=== PATIENT | female | born 1955 | race Caucasian/White ===

== ENCOUNTER 2016-06-11 10:30 | Emergency (ER) | payer OTHER ==
[~2016-06-11] VITALS: Wt 77.3 kg
[~2016-06-11 10:30] MED LIST: BENAZEPRIL; OMEPRAZOLE
[2016-06-11 10:36] VITALS: Wt 77.3 kg
[2016-06-11] MEDS ORDERED: ACETAMINOPHEN 325 MG TAB PO ONE (12:00)
--- NOTE | 2016-06-11 12:41 | RADRPT ---
PROCEDURE: CT brain without contrast CLINICAL INDICATION: Fall, posterior head injury, pain posterior left side TECHNIQUE: CT of the brain without contrast was performed on a multidetector CT scanner, with multi planar reformats. One or more of the following dose reduction techniques were used: Automated expos ure control, adjustment in mA and / or kV according to patient size, use of iterative reconstructive technique. CTDIvol = 44 mGy; DLP = 720 mGy-cm. COMPARISON: None available FINDINGS: No acute intracranial hemorrhage is identified. No extra-axial fluid collection is seen. There is no mass effect. No midline shift is identified. Ventricles and sulci are within normal limits for size and configuration. The density of the brain is within normal limits. Ball-white differentiation is preserved. Osseous structures are unremarkable. Mastoid air cells and imaged paranasal sinuses grossly clear. IMPRESSION: Unremarkable noncontrast CT of the brain. RPTAT: VV .Joe Hernandes MD, Date Time Electronically viewed and signed by .Joe Hernandes MD, on 06/11/2016 12:41 .O/
--- NOTE | 2016-06-11 12:49 | RADRPT ---
PROCEDURE: CT cervical spine without contrast. CLINICAL INDICATION: Fall, neck pain TECHNIQUE: CT of the cervical spine without contrast was performed on a multidetector CT scanner, w ith multiplanar reformats. One or more of the following dose reduction techniques were used: Automa rajiv exposure control, adjustment in mA and / or kV according to patient size, use of iterative recon structive technique. CTDIvol = 22 mGy and DLP = 390 mGy-cm. COMPARISON: None available. FINDINGS: No fracture or dislocation is identified. There is straightening of the lordosis of the cervical sp ine. Alignment is intact. The vertebral bodies are maintained in height. Intervertebral disk [place] are maintained in height. There are anterior atlantoaxial joint degenerative changes. Anterior spondylosis is seen at C4-5, C5-6. No significant disk bulge or herniation is identified. There i s multilevel facet arthropathy, most pronounced at C3-4 on the left. No central canal stenosis is i dentified. There is mild-moderate left foraminal narrowing at C3-4 on the left. IMPRESSION: 1. Straightening of the cervical lordosis, without fracture/dislocation identified. 2. Cervical spondylosis without central canal stenosis identified. Mild-moderate left foraminal na rrowing at C3-4. RPTAT: VV .Joe Hernandes MD, Date Time Electronically viewed and signed by .Joe Hernandes MD, MD on 06/11/2016 12:49 .O/
[2016-06-11] MEDS ORDERED: ACET500C5 PO (13:34)
--- NOTE | 2016-06-11 14:27 | ERD ---
ER Documentation Chief Complaint Date/Time DATE: 06/11/16 TIME: 14:20 Chief Complaint GLF 30 min [employer] complaints of neck and shoulder pain no loc or neuro def HPI 7-year-old female with a past [place] history of hypertension presents to the ED complaining of a 3 foot fall to the back of her head and neck that occurred earlier today in the morning as she was standing on a chair and try to put the curtains up at home. Denies any loss of consciousness. States that she occasionally takes aspirin. States that she feels shaken up. Denies taking her hypertension medication earlier today. Reports that she takes benazepril and naproxen. Reports that she has posterior head pain and neck pain. Denies any lacerations, nausea, vomiting, weakness, numbness or tingling, abdominal pain, chest pain, shortness of breath, other extremity pain. ROS All systems reviewed and are negative except as per history of present illness. Medications Home Meds Active Scripts Acetaminophen* (Tylophen*) 500 Mg Capsule, 1 CAP PO Q6H Y for PAIN AND OR ELEVATED TEMP, #20 CAP Prov:CARLIE CHILDERS PA-C 06/11/16 Reported Medications [Omeprazole] No Conflict Check 01/30/16 [Benazepril] No Conflict Check 01/30/16 Allergies Allergies: Coded Allergies: No Known Drug Allergy (Verified Allergy, Mild, 07/17/10) PMhx/Soc History of Surgery: Yes () Anesthesia Reaction: No Hx Neurological Disorder: No Hx Respiratory Disorders: No Hx Cardiac Disorders: Yes (HTN) Hx Psychiatric Problems: No Hx Miscellaneous Medical Probl: No Hx Alcohol Use: No Hx Substance Use: No Hx Tobacco Use: No Physical Exam Vitals Vital Signs Date Time Temp Pulse Resp B/P Pulse Ox O2 Delivery O2 Flow Rate FiO2 06/11/16 10:36 98.5 68 20 177/80 97 Physical Exam Const: Ept-ozp-[id number], well-nourished. In no acute distress. Head: Atraumatic, normocephalic. No hematoma. No schmitz sign. Tenderness palpation of the posterior head. Eyes: Normal Conjunctiva without injection. No purulent discharge. PERRLA. EOMI ENT: Normal external ear. Ear canal without erythema. Tympanic membrane pearly ball without effusion or bulging. Nasal canal clear with normal turbinates. Moist oropharynx without tonsillar exudates. Non-erythematous pharynx. Uvula midline. No drooling. No trismus. Neck: Slight cervical midline tenderness. Full range of motion, however painful no meningismus. No cervical lymphadenopathy. No JVD. Resp: Clear to auscultation bilaterally. No wheezing, rhonchi, rales, or crackles. No accessory muscle use. No retractions. Cardio: Regular rate and rhythm. No murmurs, rubs or gallops. Abd: Soft, non tender, non distended. Normal bowel sounds. No palpable masses. No rebound tenderness. No guarding. Negative McBurney's Point. Negative Centeno's Sign. Skin: Normal skin turgor. No petechiae or rashes Back: No midline tenderness. No CVA tenderness. Ext: No cyanosis, or edema. Distal pulses intact bilaterally. Neur: Awake and alert. Normal gait. Normal coordination. Cranial Nerves II- VII intact. Normal finger to nose. Muscle strength 5/5. Sensation intact. Psych: Normal Mood and Affect Results 24 hrs Current Medications Medications (Trade) Dose Ordered Sig/Terrell Route PRN Reason Start Time Stop Time Status Last Admin Dose Admin Acetaminophen (Tylenol Tab) 650 mg ONCE ONCE PO 06/11/16 12:00 06/11/16 12:01 DC 06/11/16 12:41 Procedures/MDM This is a 61-year-old female with a past medical history of hypertension presents to the ED complaining of a posterior head and neck injury. Patient is afebrile and nontoxic-appearing. Patient's blood pressure was noted to be 177/ 80. Patient's blood pressure was elevated (>120/80) but appears stable without evidence of hypertension emergency or urgency. The patient was counseled about the risks of hypertension and urged to pursue outpatient monitoring and therapy within a week with their primary care physician. Low suspicion for end organ damage. Since patient reported to be taking aspirin, and has posterior head and neck pain, a CT of the brain without contrast and cervical neck x-ray was ordered to further evaluate patient. PROCEDURE: CT brain without contrast CLINICAL INDICATION: Fall, posterior head injury, pain posterior left side TECHNIQUE: CT of the brain without contrast was performed on a multidetector CT scanner, with multiplanar reformats. One or more of the following dose reduction techniques were used: Automated exposure control, adjustment in mA and / or kV according to patient size, use of iterative reconstructive technique. CTDIvol = 44 mGy; DLP = 720 mGy-cm. COMPARISON: None available FINDINGS: No acute intracranial hemorrhage is identified. No extra-axial fluid collection is seen. There is no mass effect. No midline shift is identified. Ventricles and sulci are within normal limits for size and configuration. The density of the brain is within normal limits. Ball-white differentiation is preserved. Osseous structures are unremarkable. Mastoid air cells and imaged paranasal sinuses grossly clear. IMPRESSION: Unremarkable noncontrast CT of the brain. PROCEDURE: CT cervical spine without contrast. CLINICAL INDICATION: Fall, neck pain TECHNIQUE: CT of the cervical spine without contrast was performed on a multidetector CT scanner, with multiplanar reformats. One or more of the following dose reduction techniques were used: Automated exposure control, adjustment in mA and / or kV according to patient size, use of iterative reconstructive technique. CTDIvol = 22 mGy and DLP = 390 mGy-cm. COMPARISON: None available. FINDINGS: No fracture or dislocation is identified. There is straightening of the lordosis of the cervical spine. Alignment is intact. The vertebral bodies are maintained in height. Intervertebral disk spaces are maintained in height. There are anterior atlantoaxial joint degenerative changes. Anterior spondylosis is seen at C4-5, C5-6. No significant disk bulge or herniation is identified. There is multilevel facet arthropathy, most pronounced at C3-4 on the left. No central canal stenosis is identified. There is mild-moderate left foraminal narrowing at C3-4 on the left. IMPRESSION: 1. Straightening of the cervical lordosis, without fracture/dislocation identified. 2. Cervical spondylosis without central canal stenosis identified. Mild- moderate left foraminal narrowing at C3-4. No CT evidence of acute emergent conditions at this time. Low suspicion for intracranial bleed, subarachnoid hemorrhage, subdural hematoma, epidural hematoma, meningitis, seizures, TIA, stroke, fractures, dislocations, central cord syndrome, or other emergent conditions. Discharge medications: Tylenol Follow up with primary care physician in 1-2 days. Instructed patient to return to the ED sooner for any worsening symptoms. Patient's questions were answered. Patient understood and agreed with discharge plan. Patient discharged stable. Departure Diagnosis: Primary Impression: Injury of neck Encounter type: initial encounter Qualified Code: S19.9XXA - Injury of neck , initial encounter Additional Impression: Injury of head region Encounter type: initial encounter Qualified Code: S09.90XA - Injury of head region, initial encounter Condition: Stable Patient Instructions: HEAD INJURY, No Wake-Up (Adult), Back And Neck Pain, General Referrals: [facility] Usted se patel hecho un examen mdico de control que le indica que no est en shaji condicin que requiera tratamiento urgente en el Departamento de Emergencia. Un estudio ms profundo y el tratamiento de bone condicin pueden esperar sin ningn riesgo hasta que usted sea atendida/o en el consultorio de bone mdico o shaji cl bulmaro. Es responsabilidad suya arreglar shaji javad para el seguimiento del taiwo. MANEJO DE CONDICIONES NO URGENTES EN EL FUTURO 1) Si usted tiene un mdico de atencin primaria: Usted debera llamar a bone mdico de atencin primaria antes de venir al departamento de emergencia. Despus de las horas de consultorio, bone doctor o bone asociado/a est disponible por telfono. El mdico o enfermero de marie en el servicio telefnico puede asesorarle por vilma medio para atender el problema, o taiwo contrario se puede programar shaji javad. 2) Si usted no tiene un mdico de atencin primaria: Llame al mdico o clnica de referencia que aparece abajo bal las horas de consultorio para hacer shaji javad para que le vean. CLINICAS: [facility] [phone] [facility] [phone] [facility] [phone] [facility] [phone] [facility] [phone] [address] [facility] [phone] [facility] () [place] se patel hecho un examen mdico de control que le indica que no est en shaji condicin que requiera tratamiento urgente en el Departamento de Emergencia. Un estudio ms profundo y el tratamiento de bone condicin pueden esperar sin ningn riesgo hasta que usted sea atendida/o en el consultorio de bone mdico o shaji cl bulmaro. Es responsabilidad suya arreglar shaji javad para el seguimiento del taiwo. MANEJO DE CONDICIONES NO URGENTES EN EL FUTURO 1) Si usted tiene un mdico de atencin primaria: Usted debera llamar a bone mdico de atencin primaria antes de venir al departamento de emergencia. Despus de las horas de consultorio, bone doctor o bone asociado/a est disponible por telfono. El mdico o enfermero de marie en el servicio telefnico puede asesorarle por vilma medio para atender el problema, o taiwo contrario se puede programar shaji javad. 2) Si usted no tiene un mdico de atencin primaria: Llame al mdico o condado institucions de referencia que aparece abajo bal las horas de consultorio para hacer shaji javad para que le vean. SI USTED NO PUEDE PAGAR PARA BEATA UN MEDICO puede ir a: [facility] [address] [place] [address] [facility] [address] [place] [address] [facility] [address] [place] [address] [facility] [address] [place] [address] Additional Instructions: Llame al doctor MAANA y efrain shaji JAVAD PARA DENTRO DE 1-2 APPIAH.Dgale a la secretaria que nosotros le instruimos hacer esta javad.Avise o llame si bone condicin se empeora antes de la javad. Regresa aqui si peor o no mejor. CARLIE CHILDERS PA-C Jun 11, 2016 14:26
== END 2016-06-11 13:49 | disposition home or self-care (01) ==
LOC: FTE 10:30
DX: S19.9XXA Unspecified injury of neck, initial encounter (principal); S09.90XA Unspecified injury of head, initial encounter; I10 Essential (primary) hypertension; R51 Headache; W07.XXXA Fall from chair, initial encounter; Y92.009 Unspecified place in unspecified non-institutional (private) residence as the place of occurrence of the external cause; Z79.82 Long term (current) use of aspirin
CPT/HCPCS: 70450; 72125; Z7610

== ENCOUNTER 2018-06-04 14:23 | Emergency (ER) | payer OTHER ==
[~2018-06-04] VITALS: Wt 75.5 kg
[~2018-06-04 14:23] MED LIST changes: +ACET500C5 PO
[2018-06-04 14:40] VITALS: BP 125/77; PULSE 80; RESP 20
[2018-06-04] MEDS ORDERED: SULF1TAB31 PO (17:16)
[2018-06-04] MEDS ORDERED: CEPH500C PO (17:16)
[2018-06-04] MEDS ORDERED: IBUP-1542 PO (17:16)
--- NOTE | 2018-06-04 17:20 | ERD ---
ER Documentation Chief Complaint Chief Complaint L arm pain and rash since wednesday HPI 63-year-old female presents with left upper arm redness worsening over the last week. History significant for vaccinations in the left deltoid 1 week ago for shingles, pneumococcal as well as flu shot. Denies fevers, vomiting, additional symptoms. ROS All systems reviewed and are negative except as per history of present illness. Medications Home Meds Active Scripts Ibuprofen* (Motrin*) 600 Mg Tab, 600 MG PO Q6, #15 TAB Prov:CHAYITO THOMPSON MD 06/04/18 Sulfamethoxazole/Trimethoprim* (Bactrim Ds* Tablet) 1 Each Tablet, 1 TAB PO BID for 7 Days, TAB Prov:CHAYITO THOMPSON MD 06/04/18 Cephalexin* (Cephalexin*) 500 Mg Capsule, 500 MG PO Q6 for 7 Days, #28 CAP Prov:CHAYITO THOMPSON MD 06/04/18 Acetaminophen* (Tylophen*) 500 Mg Capsule, 1 CAP PO Q6H PRN for PAIN AND OR ELEVATED TEMP, #20 CAP Prov:CARLIE CHILDERS PA-C 06/11/16 Reported Medications [Omeprazole] No Conflict Check 01/30/16 [Benazepril] No Conflict Check 01/30/16 Allergies Allergies: Coded Allergies: No Known Drug Allergy (Verified Allergy, Mild, 07/17/10) PMhx/Soc History of Surgery: Yes () Anesthesia Reaction: No Hx Neurological Disorder: No Hx Respiratory Disorders: No Hx Cardiac Disorders: Yes (HTN) Hx Psychiatric Problems: No Hx Miscellaneous Medical Probl: No Hx Alcohol Use: No Hx Substance Use: No Hx Tobacco Use: No Smoking Status: Never smoker Physical Exam Vitals Vital Signs Date Temp Pulse Resp B/P (MAP) Pulse Ox O2 O2 Flow FiO2 Time Delivery Rate 06/04/18 98.8 80 20 125/77 99 14:40 (93) Physical Exam Const: No acute distress Head: Atraumatic Eyes: Normal Conjunctiva ENT: Normal External Ears, Nose and Mouth. Neck: Full range of motion. No meningismus. Resp: Clear to auscultation bilaterally Cardio: Regular rate and rhythm, no murmurs Abd: Soft, non tender, non distended. Normal bowel sounds Skin: No petechiae or rashes the left deltoid with warmth and erythema approximately 6-8 cm and patchy. No fluctuance, discharge. No streaking. Left upper extremity is neurovascular intact. Back: No midline or flank tenderness Ext: No cyanosis, or edema Neur: Awake and alert Psych: Normal Mood and Affect Results 24 hrs Current Medications Medications Dose Sig/Terrell Start Time Status Last (Trade) Ordered Route PRN Stop Time Admin Dose Reason Admin Cephalexin 500 mg ONCE ONCE 06/04/18 06/04/18 (Keflex) PO 17:30 17:10 06/04/18 17:31 1 tab ONCE ONCE 06/04/18 06/04/18 Trimethoprim/ PO 17:30 17:10 06/04/18 17:31 Sulfamethoxaz ole (Bactrim (Ds)) Ibuprofen 600 mg ONCE ONCE 06/04/18 06/04/18 (Motrin) PO 17:30 17:10 06/04/18 17:31 Procedures/MDM Patient presents with left upper arm redness after vaccinations 1 week ago for which she likely has cellulitis or local reaction. We will treat empirically with Bactrim and Keflex, ibuprofen, warm compresses recommendations for 2-day recheck for improving symptoms. She should return sooner for worsening redness, fevers, new worsening symptoms. No signs of necrotizing fasciitis, sepsis, additional complications. there is no evidence of abscess. The patient was stable with no new complaints during the ER course. Clinically, there is no current evidence to suggest meningitis, sepsis, acute abdomen, pneumonia, stroke, acute coronary syndrome, pulmonary embolism, aortic dissection or any other emergent condition appearing to require further evaluation or hospitalization. Patient counseled regarding my diagnostic impression and care plan. Prior to discharge all questions answered. Pt agrees with treatment plan and understands strict return precautions. Pt is instructed to follow up with primary care provider within 24-48 hours. Precautionary instructions provided including instructions to return to the ER if not improving or for any worsening or changing symptoms or concerns. Departure Diagnosis: Primary Impression: Cellulitis Site of cellulitis: extremity Site of cellulitis of extremity: upper extremity Laterality: left Qualified Codes: L03.114 - Cellulitis of left upper limb Condition: Stable Patient Instructions: Cellulitis Additional Instructions: Warm compresses at home. Recheck for worsening redness, fevers, new worsening symptoms in the next 2 days. Likely infection or reaction to vaccines. CHAYITO THOMPSON MD Jun 04, 2018 17:19
[2018-06-04] MEDS ORDERED: TRIMETHOPRIM/SULFAMETHOX (DS) TAB PO ONE (17:30)
[2018-06-04] MEDS ORDERED: CEPHALEXIN 500 MG CAP PO ONE (17:30)
[2018-06-04] MEDS ORDERED: IBUPROFEN 600 MG TAB PO ONE (17:30)
== END 2018-06-04 17:29 | disposition home or self-care (01) ==
LOC: FTE 14:23
DX: L03.114 Cellulitis of left upper limb (principal); I10 Essential (primary) hypertension
CPT/HCPCS: Z7502; Z7610; 99283